=== PATIENT | female | born 1965 | race Caucasian/White ===

== ENCOUNTER 2020-03-06 21:28 | Inpatient (IN) | payer BC ==
[2020-03-06] VITALS (7 sets, daily range): BP systolic 90–124; BP diastolic 58–83; BMI 24.3
[~2020-03-06] VITALS: Ht 170.2 cm; Wt 70.3 kg
[2020-03-06] MEDS ORDERED: SEROQUEL XR150 MG PO (21:33)
--- NOTE | 2020-03-06 21:50 | NUR ---
EDP [facility] AT BEDSIDE FOR INTUBATION.
[2020-03-06 21:57] LABS: BASOPHILS 0.2 % (0-2); EOSINOPHILS 1.9 % (0-7); HEMATOCRIT 43.1 % (36.0-48.0); HEMOGLOBIN 14.3 g/dL (12-16); IMMATURE GRANULOCYTES 0.3 % (0-5); LYMPHOCYTES 34.8 % (15-50); MCH 32.6 pg (26.0-34.0); MCHC 33.2 g/dL (31.0-37.0); MCV 98.2 fL (80.0-100.0); MEAN PLATELET VOLUME 11.5 fL (7.4-10.4); MONOCYTES 6.4 % (2-11); NEUTROPHILS 56.4 % (40-80); PLATELET COUNT 155 10x3/uL (130-400); RBC 4.39 10x6/uL (4.00-5.40); RDW 13.7 % (11.5-14.5); WBC 6.2 10x3/uL (4.8-10.8)
[2020-03-06 22:22] LABS: CALC OSMOLALITY 279 mosm/kg (275-300); CALCIUM 8.2 mg/dL (8.5-10.1); CARBON DIOXIDE 24.8 mmol/L (21.0-32.0); CHLORIDE - SERUM 108 mmol/L (98-107); CREATININE - SERUM 0.8 mg/dL (0.6-1.3); GLUCOSE 104 mg/dL (74-106); POTASSIUM - SERUM 3.4 mmol/L (3.5-5.1); SODIUM 141 mmol/L (136-145); UREA NITROGEN 9 mg/dL (7-18); eGFR NON AFRICAN AMERICAN 80 mL/min (90-120)
[2020-03-06 22:25] LABS: ACETAMINOPHEN 1.4 ug/mL (10.0-30.0); ALBUMIN 3.4 g/dL (3.4-5.0); ALKALINE PHOSPHATASE 60 U/L (30-120); ALT (SGPT) 17 U/L (10-68); BILIRUBIN - TOTAL 0.25 mg/dL (0.2-1.3); MAGNESIUM - SERUM 1.9 mg/dL (1.8-2.4); PROTEIN - SERUM 6.2 g/dL (6.4-8.2)
[2020-03-06 22:33] LABS: BILIRUBIN NEGATIVE (NEGATIVE); GLUCOSE NEGATIVE (NEGATIVE); KETONE NEGATIVE (NEGATIVE); NITRITE NEGATIVE (NEGATIVE); UROBILINOGEN NORMAL (NORMAL)
[2020-03-06 22:39] LABS: UDS - AMPHET POSITIVE QUAL (NEGATIVE); UDS - BARB NEGATIVE QUAL (NEGATIVE); UDS - BENZO NEGATIVE QUAL (NEGATIVE); UDS - COCAINE NEGATIVE QUAL (NEGATIVE); UDS - OPIATE NEGATIVE QUAL (NEGATIVE); UDS - PCP NEGATIVE QUAL (NEGATIVE); UDS - THC POSITIVE QUAL (NEGATIVE)
--- NOTE | 2020-03-06 22:51 | NUR ---
report recieved from lj romero.
[2020-03-06 23:07] LABS: PROTIME 13.2 SECONDS (11.6-15.0)
--- NOTE | 2020-03-06 23:33 | NUR ---
patient arrived to unit
--- NOTE | 2020-03-06 23:47 | NUR ---
7.5 25 at the lip. 100 vent
[2020-03-07] VITALS (24 sets, daily range): BP systolic 109–139; BP diastolic 67–98; Ht 170.2 cm; Wt 70.3 kg
--- NOTE | 2020-03-07 06:42 | NUR ---
patient family calling. statedbecause of her overdose we can not be releasing information
--- NOTE | 2020-03-07 07:16 | NUR ---
AM ROUNDS COMPLETED. PT IS VENTED WITH VSS. SHIFT ASSESSMENT COMPLETED. PT STARTED TO AROUSE AND TRIED PULLING AT HER TUBE. INCREASED PROPOFOL DRIP TO 50MCG INFUSING VIA L.FA PIV. PT IS IN SOFT RESTRAINTS AND SKIN IS INTACT, NO BRUISING NOTED OR SKIN IRRITATION. LUNGS CTA THROUGHOUT ALL LOBES. HEART SOUNDS S1S2 NOTED RRR. BS ACTIVE X4. PT HAS KLINE DRAINING TO GRAVITY OFF L.SIDE OF BED CLEAR YELLOW URINE. STAT LOCK SECURED. NO IMMEDIATE NEEDS NOTED AT THIS TIME. WILL REVIEW CHART LABS AND ORDERS FOR TODAY AND CPOC.
[2020-03-07 07:26] LABS: ALKALINE PHOSPHATASE 59 U/L (30-120); ALT (SGPT) 16 U/L (10-68); BILIRUBIN - TOTAL 0.35 mg/dL (0.2-1.3); CALC OSMOLALITY 279 mosm/kg (275-300); CARBON DIOXIDE 23.5 mmol/L (21.0-32.0); CHLORIDE - SERUM 107 mmol/L (98-107); CREATININE - SERUM 0.7 mg/dL (0.6-1.3); GLUCOSE 85 mg/dL (74-106); MAGNESIUM - SERUM 1.8 mg/dL (1.8-2.4); POTASSIUM - SERUM 3.3 mmol/L (3.5-5.1); PROTEIN - SERUM 5.8 g/dL (6.4-8.2); SODIUM 142 mmol/L (136-145); UREA NITROGEN 8 mg/dL (7-18); eGFR NON AFRICAN AMERICAN > 90 mL/min (90-120)
--- NOTE | 2020-03-07 07:36 | NUR ---
PT AWAKE AGAIN AND ATTEMPTING TO PULL OUT LINES. INCREASED SEDATION DRIP AND SECURED BILAT SOFT WRIST RESTRAINTS. WILL CTM.
--- NOTE | 2020-03-07 08:00 | NUR ---
PT FLAILING LEGS AND ARMS TRYING TO PULL OUT HER VENT. INCREASED SEDATION DRIP AGAIN. NOW AT MAX OF 75MCG ON HER PROPOFOL. VSS AND BEING MONITERED. WILL CONTINUE TO TRY AND WEAN DOWN IF SHE CAN TOLERATE AND NOT HARM HER SAFETY.
[2020-03-07 08:08] LABS: BASOPHILS 0.2 % (0-2); EOSINOPHILS 1.1 % (0-7); HEMATOCRIT 41.3 % (36.0-48.0); HEMOGLOBIN 13.7 g/dL (12-16); IMMATURE GRANULOCYTES 0.2 % (0-5); LYMPHOCYTES 37.3 % (15-50); MCH 32.6 pg (26.0-34.0); MCHC 33.2 g/dL (31.0-37.0); MCV 98.3 fL (80.0-100.0); MEAN PLATELET VOLUME 11.2 fL (7.4-10.4); MONOCYTES 9.1 % (2-11); NEUTROPHILS 52.1 % (40-80); PLATELET COUNT 146 10x3/uL (130-400); RDW 13.9 % (11.5-14.5); WBC 6.3 10x3/uL (4.8-10.8)
--- NOTE | 2020-03-07 08:37 | NUR ---
POTASSIUM RIDER INITIATED PER ELECTROLYTE PROTOCOL. BAG 08/06. SEDATION STILL AT MAX PT REMAINS TRYING TO PULL AT LINES. VSS AND BEING MONITERED. NO IMMEDIATE NEEDS NOTED. WILL CTM.
--- NOTE | 2020-03-07 10:03 | NUR ---
PT RESTING QUIETLY IN BED WITH EYES CLOSED. NO CHANGES IN VENT SETTINGS. TURNED PT IN BED AND SHE AROUSED BUT REMAINS CALM. PROPOFOL DRIP INFUSING @75MCG/KG/MIN VIA L.FA PIV. R.FA PIV HAS SECOND BAG OF POTASSIUM RIDER INFUSING @100ML/HR PER ELECTROLYTE PROTOCOL REPLACEMENT. KLINE DRAINING TO GRAVITY OFF L.SIDE OF BED, NO KINKS NOTED. SOFT WRIST RESTRAINTS IN PLACE TO BILAT WRIST. NO CURRENT NEEDS. WILL CTM.
--- NOTE | 2020-03-07 10:11 | NUR ---
BAG 3/4 POTASSIUM INFUSING PER EP. WILL CTM.
--- NOTE | 2020-03-07 11:14 | NUR ---
ATTEMPTED TO WEAN PTS SEDATION DOWN AND RELEASE HER RESTRAINTS AND SHE IMMEDIATELY BEGAN TO THROW HER LEGS AND TRY TO PULL OUT HER VENT. VSS AND STILL BEING MONITERED WILL LEAVE PROPOFOL DRIP @70MCG/KG/MIN AT THIS TIME AND CONTINUE TO MONITER AND WEAN ABLE TO. LAST POTASSIUM RIDER BEING HUNG AND THEN WILL RECHECK LAB IN 2HRS PER ELECTROLYTE PROTOCOL. ORAL CARE PROVIDED TO PT. WILL HOLD ON BATH UNTIL A LITTLE LATER. NO CURRENT NEEDS NOTED AT THIS TIME. WILL CTM.
--- NOTE | 2020-03-07 12:28 | NUR ---
LAST POTASSIUM RIDER COMPLETED. TIMED LAB FOR REDRAW ORDERED. SL PTS R.FA PIV, SWAB CAP IN USE. PRN VERSED ORDER PLACED PT STILL HAS AGITATION DESPITE MAXED OUT OF PROPOFOL DRIP. WILL CTM.
--- NOTE | 2020-03-07 13:15 | NUR ---
BEDSIDE REPORT TAKEN AND PATIENT CARE ASSUMED AT THIS TIME.
--- NOTE | 2020-03-07 17:16 | MORECARE ---
CASE MANAGEMENT DISCHARGE SUMMARY PATIENT: FORTINO STEPHENS UNIT: [id number] ADM DATE: 03/06/20 AGE: 54 : 69 SEX: F ROOM/BED: D.2307 AUTHOR: REBECCA BOLAÑOS PHYSICIAN: REFERRING PHYSICIAN: VILLA ALBERT MD DATE OF SERVICE: 03/07/20 Discharge Plan Patient Name: FORTINO STEPHENS [facility] : 1965 Planned Disposition: Anticipated Discharge Date: Discharge Date: Expected LOS: Initial Reviewer: [email or web address] Initial Review Date: 03/07/2020 Generated: 03/07/20 6:15 pm DCPIA - Discharge Planning Initial Assessment Updated by [email or web address]: Cynthia Blackmon on 03/07/20 5:11 pm * Is the patient Alert and Oriented? No * PCP DR Shannon RAMIREZ [place], [place] * Pharmacy [facility] * Preadmission Environment Home with Family * ADLs Independent * Equipment None * Other Equipment N/A * List name and contact numbers for known caregivers / representatives who currently or will assist patient after discharge: KASANDRA MCINTOSH- - 10/14/2019 CELL PHONE [phone] * Verbal permission to speak to the caregivers and representatives has been obtained from the patient. No * Community resources currently utilized None * Please name any agencies selected above. N/A * Additional services required to return to the preadmission environment? Yes * Can the patient safely return to the preadmission environment? No * Has this patient been hospitalized within the prior 30 days at any hospital? No Patient Name: FORTINO STEPHENS Page 63827 at 1716 All edits/amendments must be made on the electronic document DICTATION DATE: 03/07/201714 RELATIONSHIP SPECIALIST: OLENA 03/07/201714 RPT#: [id number] DC DATE: STATUS: ADM IN [facility] [address] [place] [address] END OF REPORT
--- NOTE | 2020-03-07 17:31 | MORECARE ---
CASE MANAGEMENT DISCHARGE SUMMARY PATIENT: FORTINO STEPHENS UNIT: [id number] ADM DATE: 03/06/20 AGE: 54 : 69 SEX: F ROOM/BED: D.2307 AUTHOR: MAMI,DOC PHYSICIAN: REFERRING PHYSICIAN: VILLA ALBERT MD DATE OF SERVICE: 03/07/20 Discharge Plan Patient Name: FORTINO STEPHENS Facility: [facility]:[place] : 1965 Planned Disposition: Anticipated Discharge Date: Discharge Date: Expected LOS: Initial Reviewer: [email or web address] Initial Review Date: 03/07/2020 Generated: 03/07/20 6:31 pm Comments DCP- Discharge Planning Updated by [email or web address]: Cynthia Blackmon on 03/07/20 4:[address] NO INFORMATION WAS AVAILABLE ON THE FACE. TC TO [employer]. PATIENT WAS "PICKED UP AT #[facility] IN [place]. THE PHONE CALL FOR SERVICES CAME FROM [phone]. NO DOCUMENTATION REGARDING THE 'S NAME IN THE NOTES IN H/P. SPOKE WITH CM DIRECTOR, RAMBO AKHTAR. CALLED TO SPEAK WITH THE . CALL WAS RECEIVED BY KASANDRA MCINTOSH. HE STATES HE WAS THE PATIENT'S . THEY WERE 10/14/2019. SHE HAS TWO DAUGHTERS GARETH, AGE 23 YRS OLD AND LORENA AGE 3131 YEARS OLD. PCP- DR Shannon GILBERT IN [place]. PHARMACY- [facility]. THE STATED HE FOLLOWED THE AMBULANCE TO [facility]. HE KNEW SHE WAS PLACED ON A "BREATHING MACHINE" IN THE ER AND WENT TO ICU. THE PATIENT WAS INDEPENDENT IN HER ADL. 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 HE STATED SHE DOES HAVE INSURANCE WITH BC/BS. CM WILL FOLLOW TO ASSIST WITH DISCHARGE PLANNING. CM CONTACTED RADHA WITH MED DATA. HE WAS COGNIZANT OF HER INSURANCE STATUS. DCPIA - Discharge Planning Initial Assessment Updated by [email or web address]: Cynthia Blackmon on 03/07/20 5:11 pm * Is the patient Alert and Oriented? No * PCP DR Shannon RAMIREZ [place], [place] * Pharmacy [facility] * Preadmission Environment Home with Family * ADLs Independent * Equipment None * Other Equipment N/A * List name and contact numbers for known caregivers / representatives who currently or will assist patient after discharge: KASANDRA MCINTOSH- - 10/14/2019 CELL PHONE [phone] * Verbal permission to speak to the caregivers and representatives has been obtained from the patient. No * Community resources currently utilized None * Please name any agencies selected above. N/A * Additional services required to return to the preadmission environment? Yes * Can the patient safely return to the preadmission environment? No * Has this patient been hospitalized within the prior 30 days at any hospital? No Last DP export: 03/07/20 4:16 pm Patient Name: FORTINO STEPHENS Page 38286 at 1731 All edits/amendments must be made on the electronic document DICTATION DATE: 03/07/201730 RESERVATION AGENT: OLENA 03/07/201730 RPT#: [id number] [place] DATE: STATUS: ADM IN [facility] [address] [place] [address] END OF REPORT
--- NOTE | 2020-03-07 19:00 | NUR ---
REPORT RECEIVED. PT SEDATED ON VENT, SOFT WRIST RESTRAINTS IN PLACE. ASSESSMENT COMPLETED, SEE FLOWSHEET. PIV IN LEFT FOREARM, SEE IV FLOWSHEET. WILL CONTINUE TO MONITOR.
--- NOTE | 2020-03-07 21:00 | NUR ---
REPOSITIONED FOR COMFORT. WILL CONTINUE TO MONITOR.
--- NOTE | 2020-03-07 23:00 | NUR ---
REASSESSMENT COMPLETED, SEE FLOWSHEET.
[2020-03-08] VITALS (24 sets, daily range): BP systolic 109–137; BP diastolic 60–92
--- NOTE | 2020-03-08 01:00 | NUR ---
REPOSITIONED FOR COMFORT. WILL CONTINUE TO MONITOR.
--- NOTE | 2020-03-08 03:00 | NUR ---
REASSESSMENT COMPLETED, NO ACUTE DISTRESS NOTED.
[2020-03-08 03:52] LABS: BASOPHILS 0.1 % (0-2); EOSINOPHILS 0.7 % (0-7); HEMATOCRIT 44.1 % (36.0-48.0); HEMOGLOBIN 14.5 g/dL (12-16); IMMATURE GRANULOCYTES 0.3 % (0-5); LYMPHOCYTES 14.3 % (15-50); MCH 32.1 pg (26.0-34.0); MCHC 32.9 g/dL (31.0-37.0); MCV 97.6 fL (80.0-100.0); MEAN PLATELET VOLUME 11.2 fL (7.4-10.4); MONOCYTES 8.3 % (2-11); NEUTROPHILS 76.3 % (40-80); PLATELET COUNT 140 10x3/uL (130-400); RBC 4.52 10x6/uL (4.00-5.40); RDW 13.9 % (11.5-14.5)
[2020-03-08 04:04] LABS: WBC 9.4 10x3/uL (4.8-10.8)
[2020-03-08 04:11] LABS: ALKALINE PHOSPHATASE 69 U/L (30-120); ALT (SGPT) 17 U/L (10-68); CALC OSMOLALITY 277 mosm/kg (275-300); CALCIUM 8.3 mg/dL (8.5-10.1); CARBON DIOXIDE 27.6 mmol/L (21.0-32.0); CHLORIDE - SERUM 108 mmol/L (98-107); CREATININE - SERUM 0.7 mg/dL (0.6-1.3); GLUCOSE 105 mg/dL (74-106); MAGNESIUM - SERUM 1.8 mg/dL (1.8-2.4); POTASSIUM - SERUM 3.4 mmol/L (3.5-5.1); PROTEIN - SERUM 5.9 g/dL (6.4-8.2); SODIUM 141 mmol/L (136-145); eGFR NON AFRICAN AMERICAN > 90 mL/min (90-120)
[2020-03-08 04:25] LABS: UREA NITROGEN 5 mg/dL (7-18)
--- NOTE | 2020-03-08 05:00 | NUR ---
PT REPOSITIONED FOR COMFORT, NO ACUTE DISTRESS NOTED AT THIS TIME.
--- NOTE | 2020-03-08 07:38 | NUR ---
SHIFT REPORT RECEIVED. PT INTUBATED AND SEDATED. VENT A/C, R 14, TV500, FIO2 40%, PEEP 5. ETT 7.5 25 LIP LINE. HR 116 TACHYCARDIC. TEMP 99.9. 02 SAT 97%. BP 140/77. OGT TO LIS WITH BROWN DRAINAGE NOTED. PIV TO LEFT FOREARM WITH PROPOFOL AT 75MCG/KG/MIN AND NS+20K AT 75ML/HR. KLINE CATH IN PLACE WITH GREEN URINE NOTED. WRIST RESTRAINTS IN PLACE PER ORDER. RESTING COMFORTABLY AT THIS TIME. SAFETY MEASURES IN PLACE. WILL CONTINUE TO MONITO.
--- NOTE | 2020-03-08 11:09 | NUR ---
CALL RECEIVED FROM KASANDRA STEPHENS PT'S .
--- NOTE | 2020-03-08 13:08 | NUR ---
SEDATION DOWN TO 40 MCG FOR WEANING, PRE EXTUBATION
--- NOTE | 2020-03-08 14:40 | NUR ---
PS TRIAL 05/07
--- NOTE | 2020-03-08 15:00 | NUR ---
SEDATION DOWN TO 20MCG FOR PENDING EXTUBATION, , PATIENT AWAKE AND NOT FOLLOWING COMMANDS, NOT EASILY REDIRECTED, WILL CONTINUE WITH TRIAL, NO OTHER ACUTE CHANGE FROM PREVIOUS
--- NOTE | 2020-03-08 15:37 | MORECARE ---
CASE MANAGEMENT DISCHARGE SUMMARY PATIENT: FORTINO STEPHENS UNIT: [id number] ADM DATE: 03/06/20 AGE: 54 : 69 SEX: F ROOM/BED: D.2307 AUTHOR: MAMI,DOC PHYSICIAN: REFERRING PHYSICIAN: VILLA ALBERT MD DATE OF SERVICE: 03/08/20 Discharge Plan Patient Name: FORTINO STEPHENS Facility: [facility]:[place] : 1965 Planned Disposition: Anticipated Discharge Date: Discharge Date: Expected LOS: Initial Reviewer: [email or web address] Initial Review Date: 03/07/2020 Generated: 03/08/20 4:36 pm Comments DCP- Discharge Planning Updated by [email or web address]: Cynthia Blackmon on 03/08/20 2:[address] CM RECEIVED A TELEPHONE CALL FROM THE PRIMARY NURSE, SMITH. . THE PSYCHIATRIST STATES THE PATIENT WILL NEED INPATIENT PLACEMENT AND TO BEGIN THE SEARCH. THE PATIENT DOES REMAIN INTUBATED AND ON THE VENT. THE PLAN IS TO START WEANING TODAY. CM WILL FOLLOW TO SEARCH FOR PLACEMENT WHEN THE PATIENT IS EXTUBATED AND MEDICALLY STABLE. DCP- Discharge Planning Updated by [id number]: Cynthia Blackmon on 03/07/20 4:[address] NO INFORMATION WAS AVAILABLE ON THE FACE. TC TO [employer]. PATIENT WAS "PICKED UP AT #5 [facility] IN [place]. THE PHONE CALL FOR SERVICES CAME FROM [phone]. NO DOCUMENTATION REGARDING THE 'S NAME IN THE NOTES IN H/P. SPOKE WITH CM DIRECTOR, RAMBO AKHTAR. CALLED TO SPEAK WITH THE . CALL WAS RECEIVED BY KASANDRA MCINTOSH. HE STATES HE WAS THE PATIENT'S . THEY WERE 10/14/2019. SHE HAS TWO DAUGHTERS GARETH, AGE 23 YRS OLD AND LORENA AGE 3131 YEARS OLD. PCP- DR Shannon GILBERT IN [place]. PHARMACY- [facility]. THE STATED HE FOLLOWED THE AMBULANCE TO [facility]. HE KNEW SHE WAS PLACED ON A "BREATHING MACHINE" IN THE ER AND WENT TO ICU. THE PATIENT WAS INDEPENDENT IN HER ADL. 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 HE STATED SHE DOES HAVE INSURANCE WITH BC/BS. CM WILL FOLLOW TO ASSIST WITH DISCHARGE PLANNING. CM CONTACTED RADHA WITH MED DATA. HE WAS COGNIZANT OF HER INSURANCE STATUS. DCPIA - Discharge Planning Initial Assessment Updated by [id number]: Cynthia Blackmon on 03/07/20 5:11 pm * Is the patient Alert and Oriented? No * PCP DR Shannon [place], [place] * Pharmacy [facility] * Preadmission Environment Home with Family * ADLs Independent * Equipment None * Other Equipment N/A * List name and contact numbers for known caregivers / representatives who currently or will assist patient after discharge: KASANDRA MCINTOSH- - 10/14/2019 CELL PHONE [phone] * Verbal permission to speak to the caregivers and representatives has been obtained from the patient. No * Community resources currently utilized None * Please name any agencies selected above. N/A * Additional services required to return to the preadmission environment? Yes * Can the patient safely return to the preadmission environment? No * Has this patient been hospitalized within the prior 30 days at any hospital? No Last DP export: 03/07/20 4:31 pm Patient Name: FORTINO STEPHENS Page 75620 at 1537 All edits/amendments must be made on the electronic document DICTATION DATE: 03/08/201535 BARNWORKER GROOM: OLENA 03/08/201535 RPT#: [id number] DC DATE: STATUS: ADM IN [facility] [address] [place] [address] END OF REPORT
--- NOTE | 2020-03-08 16:05 | NUR ---
SEDATION OFF, EXTUBATED TO 2L NC, ORAL CARE AND SUCTION COMPLETED, VSS, NO NEEDS AT THIS TIME, I AND O'S COMPLETED
--- NOTE | 2020-03-08 18:00 | NUR ---
LAB HERE FOR REPEAT POTASSIUM LEVEL
--- NOTE | 2020-03-08 19:00 | NUR ---
REPORT RECEIVED. PT RESTING IN BED, DISORIENTED X3. AROUSES TO DEEP STIMULI. 2L O2 VIA NC, ASSESSMENT COMPLETED, SEE FLOWSHEET. PIV IN LEFT AND RIGHT FOREARM INFUSING, SEE IV FLOWSHEET.
--- NOTE | 2020-03-08 21:30 | NUR ---
ATTEMPTED TO SUCTION AND REORIENT. PT SPEECH GARBLED.
[2020-03-09] VITALS (12 sets, daily range): BP systolic 112–153; BP diastolic 62–88
--- NOTE | 2020-03-09 02:46 | NUR ---
ORAL CARE PROVIDED, TONGUE SWOLLEN AND DRY.
[2020-03-09 04:03] LABS: BASOPHILS 0.1 % (0-2); EOSINOPHILS 0.2 % (0-7); HEMATOCRIT 42.3 % (36.0-48.0); HEMOGLOBIN 13.7 g/dL (12-16); IMMATURE GRANULOCYTES 0.5 % (0-5); LYMPHOCYTES 11.8 % (15-50); MCH 32.1 pg (26.0-34.0); MCHC 32.4 g/dL (31.0-37.0); MCV 99.1 fL (80.0-100.0); MEAN PLATELET VOLUME 11.7 fL (7.4-10.4); MONOCYTES 8.5 % (2-11); NEUTROPHILS 78.9 % (40-80); PLATELET COUNT 134 10x3/uL (130-400); RBC 4.27 10x6/uL (4.00-5.40); RDW 14.4 % (11.5-14.5)
[2020-03-09 04:13] LABS: WBC 12.1 10x3/uL (4.8-10.8)
--- NOTE | 2020-03-09 04:42 | NUR ---
UNABLE TO OBTAIN SUICIDE RISK ASSESSMENT R/T PATIENT CONFUSED THIS SHIFT
[2020-03-09 05:24] LABS: ALBUMIN 2.5 g/dL (3.4-5.0); ALKALINE PHOSPHATASE 70 U/L (30-120); BILIRUBIN - TOTAL 0.98 mg/dL (0.2-1.3); CALC OSMOLALITY 279 mosm/kg (275-300); CALCIUM 7.9 mg/dL (8.5-10.1); CHLORIDE - SERUM 108 mmol/L (98-107); CREATININE - SERUM 0.7 mg/dL (0.6-1.3); GLUCOSE 103 mg/dL (74-106); MAGNESIUM - SERUM 1.7 mg/dL (1.8-2.4); PHOSPHOROUS 2.4 mg/dL (2.5-4.9); POTASSIUM - SERUM 3.6 mmol/L (3.5-5.1); SODIUM 142 mmol/L (136-145); UREA NITROGEN 5 mg/dL (7-18); eGFR NON AFRICAN AMERICAN > 90 mL/min (90-120)
[2020-03-09 05:25] LABS: ALT (SGPT) 11 U/L (10-68); CARBON DIOXIDE 19.8 mmol/L (21.0-32.0)
--- NOTE | 2020-03-09 09:24 | NUR ---
attempting to pull iv out, stopped by sitter, easily redirected, resting with no signs of distress at this time,
--- NOTE | 2020-03-09 10:53 | NUR ---
Nutrition follow-up: Pt extubated 03/08; remains NPO 2/2 confusion Labs reviewed Wt: 155# Will need nutrition support started within 24 hours if po diet unable to begin RDN following.
--- NOTE | 2020-03-09 12:48 | NUR ---
TRANSFERRED VIA WHEELCHAIR TO 2228 BY SCREENER, CELL PHONE AND MANAGER ROOM SENT WITH SCREENER
--- NOTE | 2020-03-09 12:49 | NUR ---
REC'D TO ROOM 2229 VIA WC AWAKE AND ALERT. RESP EVEN AND UNLABORED WITH NO DISTRESS NOTED. NO C/O PAIN OR DISCOMFORT NOTED OR VOICED. TRANSFER SELF OVER TO BED. C/L IN REACH AT BEDSIDE.
--- NOTE | 2020-03-09 13:19 | CN ---
PATIENT NAME:FORTINO STEPHENS MEDICAL RECORD: [id number] : 69 LOCATION:D.MS James2229 ADMIT DATE: 03/06/20 ACCOUNT: [id number] CONSULTING PHYSICIAN: PIYUSH BELLA MD REFERRING PHYSICIAN: VILLA ALBERT MD DATE OF CONSULTATION: 03/08/2020 PSYCHIATRIC CONSULTATION IDENTIFYING DATA: The patient is 54 years old and she is admitted to the hospital voluntarily. CHIEF COMPLAINT: Overdose. HISTORY OF PRESENT ILLNESS: The patient apparently took 40 or more tablets of Seroquel along with an unknown amount of Tequila. She did this deliberately and with the intention of killing herself. Her brought her to the Emergency Department where she was found to be in respiratory distress and required intubation. That was 2 days ago and she is still intubated. Her urine was positive for both amphetamines and marijuana along with the blood alcohol level that was 165. The patient is intubated and not interviewable. ASSESSMENT: 1. Status post overdose. 2. Polysubstance abuse. 3. Presumptive major depressive episode. PLAN: The patient has been on a ventilator for 2 days. This was a very serious overdose. Once extubated, I or Soledad the nurse practitioner would be happy to see her again. Having said that, I must also indicate that there is not a set of circumstances that I can for see that would cause me to recommend anything short of acute inpatient hospitalization. Based on that information, I think it is appropriate for case management to begin looking for placement and she will need to be with a sitter once she is extubated. TRANSINT:[id number] Voice Confirmation ID: [id number] DOCUMENT ID: [id number] PIYUSH BELLA MD at 1319 CC: [id number] DICTATION DATE: 03/08/20 1543 BUDGET MANAGER: 03/08/20 1556 ADM IN [facility] [id number] [place] [address]
--- NOTE | 2020-03-09 16:14 | NUR ---
WAS MEDICATED WITH APAP PER ORDERS AT THIS TIME. C/L IN REACH AT BEDSIDE.
--- NOTE | 2020-03-09 18:45 | NUR ---
I have reviewed this patient and I concur with the Shift Assessment completed by the Licensed Practical Nurse today this shift.
[2020-03-10] VITALS: BP 133/73
[2020-03-10 04:00] VITALS: BP 166/81
--- NOTE | 2020-03-10 04:38 | NUR ---
I have reviewed this patient and I concur with the Shift Assessment completed by the Licensed Practical Nurse today this shift.
[2020-03-10 06:14] LABS: BASOPHILS 0.1 % (0-2); EOSINOPHILS 1.2 % (0-7); HEMATOCRIT 41.5 % (36.0-48.0); HEMOGLOBIN 13.6 g/dL (12-16); IMMATURE GRANULOCYTES 0.4 % (0-5); LYMPHOCYTES 8.6 % (15-50); MCH 32.3 pg (26.0-34.0); MCHC 32.8 g/dL (31.0-37.0); MCV 98.6 fL (80.0-100.0); MEAN PLATELET VOLUME 11.6 fL (7.4-10.4); MONOCYTES 8.3 % (2-11); NEUTROPHILS 81.4 % (40-80); PLATELET COUNT 146 10x3/uL (130-400); RBC 4.21 10x6/uL (4.00-5.40); WBC 11.9 10x3/uL (4.8-10.8)
[2020-03-10 06:33] LABS: ALBUMIN 2.5 g/dL (3.4-5.0); ALKALINE PHOSPHATASE 75 U/L (30-120); ALT (SGPT) 11 U/L (10-68); BILIRUBIN - TOTAL 0.86 mg/dL (0.2-1.3); CALC OSMOLALITY 274 mosm/kg (275-300); CALCIUM 8.3 mg/dL (8.5-10.1); CARBON DIOXIDE 22.3 mmol/L (21.0-32.0); CHLORIDE - SERUM 106 mmol/L (98-107); GLUCOSE 88 mg/dL (74-106); PROTEIN - SERUM 6.4 g/dL (6.4-8.2); SODIUM 140 mmol/L (136-145); UREA NITROGEN 5 mg/dL (7-18)
[2020-03-10 06:38] LABS: CREATININE - SERUM 0.5 mg/dL (0.6-1.3); MAGNESIUM - SERUM 2.2 mg/dL (1.8-2.4); eGFR NON AFRICAN AMERICAN > 90 mL/min (90-120)
--- NOTE | 2020-03-10 07:53 | NUR ---
ALERT AND ORIENTED. LUNGS CLEAR BILATERALLY. HEART SOUNDS S1 AND S2 HEARD IN ALL [place]. BOWEL SOUNDS ACTIVE X 4. IV TO LFA PATENT WITHOUT REDNESS. O2 IN PLACE AT 4L NC. DENIES NEEDS. BED LOW. CALL BENITEZ AND PERSONAL ITEMS IN REACH. WILL CONTINUE TO MONITOR.
--- NOTE | 2020-03-10 08:58 | NUR ---
SPOKE WITH MATTI GRANDA ABOUT REMOVING PATIENT'S KLINE. STATES OK TO BLADDER TRAIN THEN DC KLINE.
--- NOTE | 2020-03-10 09:00 | NUR ---
KLINE CLAMPED FOR BLADDER TRAININGS.
--- NOTE | 2020-03-10 09:25 | NUR ---
PATIENT STATES HAS PERSONAL BELONGINGS "SOMEWHERE IN THE HOSPITAL" INCLUDING CLOTHING AND CELL PHONE. CALLED ICU WHO STATES DO NOT HAVE ANY BELONGINGS. NO BELONGING LIST ON CHART. NO NOTE OF ANY BELONGINGS ON ADMISSION ASSESSMENT. NO MENTION OF BELONGINGS IN NURSING NOTED. CALLED ER WHO STATES WILL CHECK TO SEE IF ANY PERSONAL BELONGINGS AND CALL BACK.
--- NOTE | 2020-03-10 09:41 | NUR ---
KLINE REMOVED WITH TIP INTACT. HAT PLACED IN TOILET TO MONITOR URINE OUTPUT. STAT LOCK REMOVED FROM RIGHT UPPER THIGH.
--- NOTE | 2020-03-10 09:43 | NUR ---
100ML VOID NOTED.
[2020-03-10 09:49] VITALS: BP 133/90
--- NOTE | 2020-03-10 10:22 | NUR ---
SPOKE WITH PATIENT'S WHO STATES HE TOOK HOME PATIENT'S CLOTHES AND PURSE BUT LEFT PATIENT'S CELL PHONE WITH PATIENT IN ER. SPOKE WITH ER WHO STATES DO NOT HAVE CELL PHONE.
--- NOTE | 2020-03-10 10:24 | NUR ---
CELL PHONE FOUND IN DRAWER OUTSIDE ROOM WITH SITTER.
--- NOTE | 2020-03-10 13:48 | NUR ---
TOOK HOME PHONE AND PHONE SCHOOL PHOTOGRAPHS DETAILER.
[2020-03-10 13:58] VITALS: BP 149/93
--- NOTE | 2020-03-10 15:02 | MORECARE ---
CASE MANAGEMENT DISCHARGE SUMMARY PATIENT: FORTINO STEPHENS UNIT: [id number] ADM DATE: 03/06/20 AGE: 54 : 69 SEX: F ROOM/BED: D.2229 AUTHOR: MAMI,DOC PHYSICIAN: REFERRING PHYSICIAN: VILLA ALBERT MD DATE OF SERVICE: 03/10/20 Discharge Plan Patient Name: FORTINO STEPHENS Facility: [facility]:[place] : 1965 Planned Disposition: Anticipated Discharge Date: Discharge Date: Expected LOS: Initial Reviewer: [email or web address] Initial Review Date: 03/07/2020 Generated: 03/10/20 4:01 pm Comments DCP- Discharge Planning Updated by [email or web address]: Cynthia Blackmon on 03/08/20 2:[address] CM RECEIVED A TELEPHONE CALL FROM THE PRIMARY NURSE, SMITH. . THE PSYCHIATRIST STATES THE PATIENT WILL NEED INPATIENT PLACEMENT AND TO BEGIN THE SEARCH. THE PATIENT DOES REMAIN INTUBATED AND ON THE VENT. THE PLAN IS TO START WEANING TODAY. CM WILL FOLLOW TO SEARCH FOR PLACEMENT WHEN THE PATIENT IS EXTUBATED AND MEDICALLY STABLE. DCP- Discharge Planning Updated by [email or web address]: Cynthia Blackmon on 03/07/20 4:[address] NO INFORMATION WAS AVAILABLE ON THE FACE. TC TO [employer]. PATIENT WAS "PICKED UP AT #[facility] IN [place]. THE PHONE CALL FOR SERVICES CAME FROM [phone]. NO DOCUMENTATION REGARDING THE 'S NAME IN THE NOTES IN H/P. SPOKE WITH CM DIRECTOR, RAMBO AKHTAR. CALLED TO SPEAK WITH THE . CALL WAS RECEIVED BY KASANDRA MCINTOSH. HE STATES HE WAS THE PATIENT'S . THEY WERE 10/14/2019. SHE HAS TWO DAUGHTERS GARETH, AGE 23 YRS OLD AND LORENA AGE 3131 YEARS OLD. PCP- DR Shannon GILBERT IN [place]. PHARMACY- [facility]. THE STATED HE FOLLOWED THE AMBULANCE TO [facility]. HE KNEW SHE WAS PLACED ON A "BREATHING MACHINE" IN THE ER AND WENT TO ICU. THE PATIENT WAS INDEPENDENT IN HER ADL. 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 HE STATED SHE DOES HAVE INSURANCE WITH BC/BS. CM WILL FOLLOW TO ASSIST WITH DISCHARGE PLANNING. CM CONTACTED RADHA WITH MED DATA. HE WAS COGNIZANT OF HER INSURANCE STATUS. DCPIA - Discharge Planning Initial Assessment Updated by [email or web address]: Cynthia Blackmon on 03/07/20 5:11 pm * Is the patient Alert and Oriented? No * PCP DR Shannon [place], [place] * Pharmacy [facility] * Preadmission Environment Home with Family * ADLs Independent * Equipment None * Other Equipment N/A * List name and contact numbers for known caregivers / representatives who currently or will assist patient after discharge: KASANDRA MCINTOSH- - 10/14/2019 CELL PHONE [phone] * Verbal permission to speak to the caregivers and representatives has been obtained from the patient. No * Community resources currently utilized None * Please name any agencies selected above. N/A * Additional services required to return to the preadmission environment? Yes * Can the patient safely return to the preadmission environment? No * Has this patient been hospitalized within the prior 30 days at any hospital? No External Providers External Provider: Marysol Next Contact Date: Service Request Date: Service Type: Resolution: Reviewer: Comments: Last DP export: 03/08/20 2:37 pm Patient Name: FORTINO STEPHENS Page 49073 at 1502 All edits/amendments must be made on the electronic document DICTATION DATE: 03/10/20 1501 SOC ANALYST: OLENA 03/10/20 1501 RPT#: [id number] DC DATE: STATUS: ADM IN [facility] [address] [place] [address] END OF REPORT
--- NOTE | 2020-03-10 15:08 | MORECARE ---
CASE MANAGEMENT DISCHARGE SUMMARY PATIENT: FORTINO STEPHENS UNIT: [id number] ADM DATE: 03/06/20 AGE: 54 : 69 SEX: F ROOM/BED: D.2229 AUTHOR: MAMI,DOC PHYSICIAN: REFERRING PHYSICIAN: VILLA ALBERT MD DATE OF SERVICE: 03/10/20 Discharge Plan Patient Name: FORTINO STEPHENS Facility: [facility]:[place] : 1965 Planned Disposition: Anticipated Discharge Date: Discharge Date: Expected LOS: Initial Reviewer: [id number] Initial Review Date: 03/07/2020 Generated: 03/10/20 4:08 pm Comments DCP- Discharge Planning Updated by [email or web address]: Cynthia Blackmon on 03/08/20 2:[address] CM RECEIVED A TELEPHONE CALL FROM THE PRIMARY NURSE, SMITH. . THE PSYCHIATRIST STATES THE PATIENT WILL NEED INPATIENT PLACEMENT AND TO BEGIN THE SEARCH. THE PATIENT DOES REMAIN INTUBATED AND ON THE VENT. THE PLAN IS TO START WEANING TODAY. CM WILL FOLLOW TO SEARCH FOR PLACEMENT WHEN THE PATIENT IS EXTUBATED AND MEDICALLY STABLE. DCP- Discharge Planning Updated by [email or web address]: Cynthia Blackmon on 03/07/20 4:[address] NO INFORMATION WAS AVAILABLE ON THE FACE. TC TO [employer]. PATIENT WAS "PICKED UP AT #[facility] IN [place]. THE PHONE CALL FOR SERVICES CAME FROM [phone]. NO DOCUMENTATION REGARDING THE 'S NAME IN THE NOTES IN H/P. SPOKE WITH CM DIRECTOR, RAMBO AKHTAR. CALLED TO SPEAK WITH THE . CALL WAS RECEIVED BY KASANDRA MCINTOSH. HE STATES HE WAS THE PATIENT'S . THEY WERE 10/14/2019. SHE HAS TWO DAUGHTERS GARETH, AGE 23 YRS OLD AND LORENA AGE 3131 YEARS OLD. PCP- DR Shannon GILBERT IN [place]. PHARMACY- [facility]. THE STATED HE FOLLOWED THE AMBULANCE TO [facility]. HE KNEW SHE WAS PLACED ON A "BREATHING MACHINE" IN THE ER AND WENT TO ICU. THE PATIENT WAS INDEPENDENT IN HER ADL. 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 HE STATED SHE DOES HAVE INSURANCE WITH BC/BS. CM WILL FOLLOW TO ASSIST WITH DISCHARGE PLANNING. CM CONTACTED RADHA WITH MED DATA. HE WAS COGNIZANT OF HER INSURANCE STATUS. DCPIA - Discharge Planning Initial Assessment Updated by [id number]: Cynthia Blackmon on 03/07/20 5:11 pm * Is the patient Alert and Oriented? No * [facility] [place] * Pharmacy [facility] * Preadmission Environment Home with Family * ADLs Independent * Equipment None * Other Equipment N/A * List name and contact numbers for known caregivers / representatives who currently or will assist patient after discharge: KASANDRA MCINTOSH- - 10/14/2019 CELL PHONE [phone] * Verbal permission to speak to the caregivers and representatives has been obtained from the patient. No * Community resources currently utilized None * Please name any agencies selected above. N/A * Additional services required to return to the preadmission environment? Yes * Can the patient safely return to the preadmission environment? No * Has this patient been hospitalized within the prior 30 days at any hospital? No External Providers External Provider: [facility] (Inpt Adult Psych) Next Contact Date: Service Request Date: Service Type: Resolution: Reviewer: Comments: Last DP export: 03/10/20 2:02 pm Patient Name: FORTINO STEPHENS Page 03104 at 1508 All edits/amendments must be made on the electronic document DICTATION DATE: 03/10/20 1508 PUMP TENDER: OLENA 03/10/20 1508 RPT#: [id number] DC DATE: STATUS: ADM IN [facility] [address] [place] [address] END OF REPORT
--- NOTE | 2020-03-10 15:15 | MORECARE ---
CASE MANAGEMENT DISCHARGE SUMMARY PATIENT: FORTINO STEPHENS UNIT: [id number] ADM DATE: 03/06/20 AGE: 54 : 69 SEX: F ROOM/BED: D.2229 AUTHOR: MAMI,DOC PHYSICIAN: REFERRING PHYSICIAN: VILLA ALBERT MD DATE OF SERVICE: 03/10/20 Discharge Plan Patient Name: FORTINO STEPHENS Facility: [facility]:[place] : 1965 Planned Disposition: Anticipated Discharge Date: Discharge Date: Expected LOS: Initial Reviewer: [id number] Initial Review Date: 03/07/2020 Generated: 03/10/20 4:15 pm Comments DCP- Discharge Planning Updated by [email or web address]: Cynthia Blackmon on 03/08/20 2:[address] CM RECEIVED A TELEPHONE CALL FROM THE PRIMARY NURSE, SMITH. . THE PSYCHIATRIST STATES THE PATIENT WILL NEED INPATIENT PLACEMENT AND TO BEGIN THE SEARCH. THE PATIENT DOES REMAIN INTUBATED AND ON THE VENT. THE PLAN IS TO START WEANING TODAY. CM WILL FOLLOW TO SEARCH FOR PLACEMENT WHEN THE PATIENT IS EXTUBATED AND MEDICALLY STABLE. DCP- Discharge Planning Updated by [id number]: Cynthia Blackmon on 03/07/20 4:[address] NO INFORMATION WAS AVAILABLE ON THE FACE. TC TO [employer]. PATIENT WAS "PICKED UP AT #5 [facility] IN [place]. THE PHONE CALL FOR SERVICES CAME FROM [phone]. NO DOCUMENTATION REGARDING THE 'S NAME IN THE NOTES IN H/P. SPOKE WITH CM DIRECTOR, RAMBO AKHTAR. CALLED TO SPEAK WITH THE . CALL WAS RECEIVED BY KASANDRA MCINTOSH. HE STATES HE WAS THE PATIENT'S . THEY WERE 10/14/2019. SHE HAS TWO DAUGHTERS GARETH, AGE 23 YRS OLD AND LORENA AGE 3131 YEARS OLD. PCP- DR Shannon GILBERT IN [place]. PHARMACY- [facility]. THE STATED HE FOLLOWED THE AMBULANCE TO [facility]. HE KNEW SHE WAS PLACED ON A "BREATHING MACHINE" IN THE ER AND WENT TO ICU. THE PATIENT WAS INDEPENDENT IN HER ADL. 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 HE STATED SHE DOES HAVE INSURANCE WITH BC/BS. CM WILL FOLLOW TO ASSIST WITH DISCHARGE PLANNING. CM CONTACTED RADHA WITH MED DATA. HE WAS COGNIZANT OF HER INSURANCE STATUS. DCPIA - Discharge Planning Initial Assessment Updated by [id number]: Cynthia Blackmon on 03/07/20 5:11 pm * Is the patient Alert and Oriented? No * PCP DR Shannon [place], [place] * Pharmacy [facility] * Preadmission Environment Home with Family * ADLs Independent * Equipment None * Other Equipment N/A * List name and contact numbers for known caregivers / representatives who currently or will assist patient after discharge: KASANDRA MCINTOSH- - 10/14/2019 CELL PHONE [phone] * Verbal permission to speak to the caregivers and representatives has been obtained from the patient. No * Community resources currently utilized None * Please name any agencies selected above. N/A * Additional services required to return to the preadmission environment? Yes * Can the patient safely return to the preadmission environment? No * Has this patient been hospitalized within the prior 30 days at any hospital? No External Providers External Provider: Mony Next Contact Date: Service Request Date: Service Type: Resolution: Reviewer: Comments: External Provider: LEIF Next Contact Date: Service Request Date: Service Type: Resolution: Reviewer: Comments: [facility] Next Contact Date: Service Request Date: Service Type: Resolution: Reviewer: Comments: Last DP export: 03/10/20 2:08 pm Patient Name: FORTINO STEPHENS Page 67393 at 1515 All edits/amendments must be made on the electronic document DICTATION DATE: 03/10/20 1515 HADOOP ANALYST: OLENA 03/10/20 1515 RPT#: [id number] DC DATE: STATUS: ADM IN [facility] [address] [place] [address] END OF REPORT
--- NOTE | 2020-03-10 15:22 | MORECARE ---
CASE MANAGEMENT DISCHARGE SUMMARY PATIENT: FORTINO STEPHENS UNIT: [id number] ADM DATE: 03/06/20 AGE: 54 : 69 SEX: F ROOM/BED: D.2229 AUTHOR: MAMI,DOC PHYSICIAN: REFERRING PHYSICIAN: VILLA ALBRET MD DATE OF SERVICE: 03/10/20 Discharge Plan Patient Name: FORTINO STEPHENS Facility: [facility]:[place] : 1965 Planned Disposition: Anticipated Discharge Date: Discharge Date: Expected LOS: Initial Reviewer: [id number] Initial Review Date: 03/07/2020 Generated: 03/10/20 4:21 pm Comments DCP- Discharge Planning Updated by [id number]: Cynthia Blackmon on 03/08/20 2:[address] CM RECEIVED A TELEPHONE CALL FROM THE PRIMARY NURSE, SMITH. . THE PSYCHIATRIST STATES THE PATIENT WILL NEED INPATIENT PLACEMENT AND TO BEGIN THE SEARCH. THE PATIENT DOES REMAIN INTUBATED AND ON THE VENT. THE PLAN IS TO START WEANING TODAY. CM WILL FOLLOW TO SEARCH FOR PLACEMENT WHEN THE PATIENT IS EXTUBATED AND MEDICALLY STABLE. DCP- Discharge Planning Updated by [id number]: Cynthia Blackmon on 03/07/20 4:[address] NO INFORMATION WAS AVAILABLE ON THE FACE. TC TO [employer]. PATIENT WAS "PICKED UP AT #5 [facility] IN [place]. THE PHONE CALL FOR SERVICES CAME FROM [phone]. NO DOCUMENTATION REGARDING THE 'S NAME IN THE NOTES IN H/P. SPOKE WITH CM DIRECTOR, RAMBO AKHTAR. CALLED TO SPEAK WITH THE . CALL WAS RECEIVED BY KASANDRA MCINTOSH. HE STATES HE WAS THE PATIENT'S . THEY WERE 10/14/2019. SHE HAS TWO DAUGHTERS GARETH, AGE 23 YRS OLD AND LORENA AGE 3131 YEARS OLD. PCP- DR Shannon GILBERT IN [place]. PHARMACY- [facility]. THE STATED HE FOLLOWED THE AMBULANCE TO [facility]. HE KNEW SHE WAS PLACED ON A "BREATHING MACHINE" IN THE ER AND WENT TO ICU. THE PATIENT WAS INDEPENDENT IN HER ADL. 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 HE STATED SHE DOES HAVE INSURANCE WITH BC/BS. CM WILL FOLLOW TO ASSIST WITH DISCHARGE PLANNING. CM CONTACTED RADHA WITH MED DATA. HE WAS COGNIZANT OF HER INSURANCE STATUS. DCPIA - Discharge Planning Initial Assessment Updated by [id number]: Cynthia Blackmon on 03/07/20 5:11 pm * Is the patient Alert and Oriented? No * PCP DR Shannon [place], [place] * Pharmacy [facility] * Preadmission Environment Home with Family * ADLs Independent * Equipment None * Other Equipment N/A * List name and contact numbers for known caregivers / representatives who currently or will assist patient after discharge: KASANDRA MCINTOSH- - 10/14/2019 CELL PHONE [phone] * Verbal permission to speak to the caregivers and representatives has been obtained from the patient. No * Community resources currently utilized None * Please name any agencies selected above. N/A * Additional services required to return to the preadmission environment? Yes * Can the patient safely return to the preadmission environment? No * Has this patient been hospitalized within the prior 30 days at any hospital? No External Providers External Provider: OTHER-OTHER Next Contact Date: Service Request Date: Service Type: Resolution: Reviewer: Comments: Last DP export: 03/10/20 2:15 pm Patient Name: FORTINO STEPHENS Page [id number] at 1522 All edits/amendments must be made on the electronic document DICTATION DATE: 03/10/20 152 BRIDGE CARPENTER: OLENA 03/10/20 152 RPT#: [id number] DC DATE: STATUS: ADM IN [facility] [address] [place] [address] END OF REPORT
--- NOTE | 2020-03-10 15:28 | MORECARE ---
CASE MANAGEMENT DISCHARGE SUMMARY PATIENT: FORTINO STEPHENS UNIT: [id number] ADM DATE: 03/06/20 AGE: 54 : 69 SEX: F ROOM/BED: D.2229 AUTHOR: MAMI,DOC PHYSICIAN: REFERRING PHYSICIAN: VILLA ALBERT MD DATE OF SERVICE: 03/10/20 Discharge Plan Patient Name: FORTINO STEPHENS Facility: [facility]:[place] : 1965 Planned Disposition: Anticipated Discharge Date: Discharge Date: Expected LOS: Initial Reviewer: [id number] Initial Review Date: 03/07/2020 Generated: 03/10/20 4:27 pm Comments DCP- Discharge Planning Updated by [id number]: Cynthia Blackmon on 03/08/20 2:[address] CM RECEIVED A TELEPHONE CALL FROM THE PRIMARY NURSE, SMITH. . THE PSYCHIATRIST STATES THE PATIENT WILL NEED INPATIENT PLACEMENT AND TO BEGIN THE SEARCH. THE PATIENT DOES REMAIN INTUBATED AND ON THE VENT. THE PLAN IS TO START WEANING TODAY. CM WILL FOLLOW TO SEARCH FOR PLACEMENT WHEN THE PATIENT IS EXTUBATED AND MEDICALLY STABLE. DCP- Discharge Planning Updated by [email or web address]: Cynthia Blackmon on 03/07/20 4:[address] NO INFORMATION WAS AVAILABLE ON THE FACE. TC TO [employer]. PATIENT WAS "PICKED UP AT #5 [facility] IN [place]. THE PHONE CALL FOR SERVICES CAME FROM [phone]. NO DOCUMENTATION REGARDING THE 'S NAME IN THE NOTES IN H/P. SPOKE WITH CM DIRECTOR, RAMBO AKHTAR. CALLED TO SPEAK WITH THE . CALL WAS RECEIVED BY KASANDRA MCINTOSH. HE STATES HE WAS THE PATIENT'S . THEY WERE 10/14/2019. SHE HAS TWO DAUGHTERS GARETH, AGE 23 YRS OLD AND LORENA AGE 3131 YEARS OLD. PCP- DR Shannon GILBERT IN [place]. PHARMACY- [facility]. THE STATED HE FOLLOWED THE AMBULANCE TO [facility]. HE KNEW SHE WAS PLACED ON A "BREATHING MACHINE" IN THE ER AND WENT TO ICU. THE PATIENT WAS INDEPENDENT IN HER ADL. 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 HE STATED SHE DOES HAVE INSURANCE WITH BC/BS. CM WILL FOLLOW TO ASSIST WITH DISCHARGE PLANNING. CM CONTACTED RADHA WITH MED DATA. HE WAS COGNIZANT OF HER INSURANCE STATUS. DCPIA - Discharge Planning Initial Assessment Updated by [id number]: Cynthia Blackmon on 03/07/20 5:11 pm * Is the patient Alert and Oriented? No * PCP DR Shannon [place], [place] * Pharmacy [facility] * Preadmission Environment Home with Family * ADLs Independent * Equipment None * Other Equipment N/A * List name and contact numbers for known caregivers / representatives who currently or will assist patient after discharge: KASANDRA MCNITOSH- - 10/14/2019 CELL PHONE [phone] * Verbal permission to speak to the caregivers and representatives has been obtained from the patient. No * Community resources currently utilized None * Please name any agencies selected above. N/A * Additional services required to return to the preadmission environment? Yes * Can the patient safely return to the preadmission environment? No * Has this patient been hospitalized within the prior 30 days at any hospital? No External Providers External Provider: LEIF Next Contact Date: Service Request Date: Service Type: Resolution: Reviewer: Comments: Last DP export: 03/10/20 2:22 pm Patient Name: FORTINO STEPHENS Page 99152 at 1528 All edits/amendments must be made on the electronic document DICTATION DATE: 03/10/20 1528 CANDY CUTTER MACHINE: OLENA 03/10/20 1528 RPT#: [id number] DC DATE: STATUS: ADM IN [facility] [address] [place] [address] END OF REPORT
--- NOTE | 2020-03-10 15:35 | MORECARE ---
CASE MANAGEMENT DISCHARGE SUMMARY PATIENT: FORTINO STEPHENS UNIT: [id number] ADM DATE: 03/06/20 AGE: 54 : 69 SEX: F ROOM/BED: D.2229 AUTHOR: MAMI,DOC PHYSICIAN: REFERRING PHYSICIAN: VILLA ALBERT MD DATE OF SERVICE: 03/10/20 Discharge Plan Patient Name: FORTINO STEPHENS Facility: [facility]:[place] : 1965 Planned Disposition: Anticipated Discharge Date: Discharge Date: Expected LOS: Initial Reviewer: [email or web address] Initial Review Date: 03/07/2020 Generated: 03/10/20 4:34 pm Comments DCP- Discharge Planning Updated by [id number]: Tia oRllins on 03/10/20 2:[address] CM notified that patient is medically stable for discharge. Patient is needing Inpatient Psych placement. Patient has been refusing placement but earlier today patient had agreed to [facility]. Patient is aware that if she refuses treatment then she will be placed on 72hr hold and that weekends are not included in those hours. CM sent referral packets to [facility], [facility] and [facility]. CM will await to see if anyone accepts patient if not will broaden search. CM will continue to follow and assist as needed with discharge planning / needs. DCP- Discharge Planning Updated by [email or web address]: Cynthia Blackmon on 03/08/20 2:[address] CM RECEIVED A TELEPHONE CALL FROM THE PRIMARY NURSE, . THE PSYCHIATRIST STATES THE PATIENT WILL NEED INPATIENT PLACEMENT AND TO BEGIN THE SEARCH. THE PATIENT DOES REMAIN INTUBATED AND ON THE VENT. THE PLAN IS TO START WEANING TODAY. CM WILL FOLLOW TO SEARCH FOR PLACEMENT WHEN THE PATIENT IS EXTUBATED AND MEDICALLY STABLE. DCP- Discharge Planning Updated by [email or web address]: Cynthia Blackmon on 03/07/20 4:[address] NO INFORMATION WAS AVAILABLE ON THE FACE. TC TO [employer]. PATIENT WAS "PICKED UP AT #5 [facility] IN [place]. THE PHONE CALL FOR SERVICES CAME FROM [phone]. NO DOCUMENTATION REGARDING THE 'S NAME IN THE NOTES IN H/P. SPOKE WITH CM DIRECTOR, RAMBO AKHTAR. CALLED TO SPEAK WITH THE . CALL WAS RECEIVED BY KASANDRA MCINTOSH. HE STATES HE WAS THE PATIENT'S . THEY WERE 10/14/2019. SHE HAS TWO DAUGHTERS GARETH, AGE 23 YRS OLD AND LORENA AGE 3131 YEARS OLD. PCP- DR Shannon GILBERT IN [place]. PHARMACY- [facility]. THE STATED HE FOLLOWED THE AMBULANCE TO [facility]. HE KNEW SHE WAS PLACED ON A "BREATHING MACHINE" IN THE ER AND WENT TO ICU. THE PATIENT WAS INDEPENDENT IN HER ADL. 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 HE STATED SHE DOES HAVE INSURANCE WITH BC/BS. CM WILL FOLLOW TO ASSIST WITH DISCHARGE PLANNING. CM CONTACTED RADHA WITH [facility] [employer]. HE WAS COGNIZANT OF HER INSURANCE STATUS. DCPIA - Discharge Planning Initial Assessment Updated by [id number]: Cynthia Blackmon on 03/07/20 5:11 pm * Is the patient Alert and Oriented? No * PCP DR Shannon RAMIREZ [place], [place] * Pharmacy [facility] * Preadmission Environment Home with Family * ADLs Independent * Equipment None * Other Equipment N/A * List name and contact numbers for known caregivers / representatives who currently or will assist patient after discharge: KASANDRA MCINTOSH- - 10/14/2019 CELL PHONE [phone] * Verbal permission to speak to the caregivers and representatives has been obtained from the patient. No * Community resources currently utilized None * Please name any agencies selected above. N/A * Additional services required to return to the preadmission environment? Yes * Can the patient safely return to the preadmission environment? No * Has this patient been hospitalized within the prior 30 days at any hospital? No Last DP export: 03/10/20 2:28 pm Patient Name: FORTINO STEPHENS Page 09032 at 153 All edits/amendments must be made on the electronic document DICTATION DATE: 03/10/201533 MARKETING CONTENT SPECIALIST: OLENA 03/10/201533 RPT#: [id number] DC DATE: STATUS: ADM IN [facility] [address] [place] [address] END OF REPORT
--- NOTE | 2020-03-10 16:05 | NUR ---
FAMILY IN ROOM. PATIENT IS WITHOUT NEEDS. DOOR OPEN TO MONITOR
--- NOTE | 2020-03-10 17:01 | NUR ---
STILL LYING IN BED WITH . PATIENT IS WITHOUT DISTRESS.DOOR OPEN
--- NOTE | 2020-03-10 17:13 | MORECARE ---
CASE MANAGEMENT DISCHARGE SUMMARY PATIENT: FORTINO STEPHENS UNIT: [id number] ADM DATE: 03/06/20 AGE: 54 : 69 SEX: F ROOM/BED: D.2229 AUTHOR: MAMI,DOC PHYSICIAN: REFERRING PHYSICIAN: VILLA ALBERT MD DATE OF SERVICE: 03/10/20 Discharge Plan Patient Name: FORTINO STEPHENS Facility: [facility]:[place] : 1965 Planned Disposition: Anticipated Discharge Date: Discharge Date: Expected LOS: Initial Reviewer: [email or web address] Initial Review Date: 03/07/2020 Generated: 03/10/20 6:12 pm Comments DCP- Discharge Planning Updated by [id number]: Tia Rollins on 03/10/20 4:[address] CM received a call back from [facility] and they stated that their physician requested to re-eval on Thursday since patient is still on IV medications. CM received a call back from [facility] that pending CoVID screen they will most likely accept patient. CM contacted lab to get ETA on pending covid results. He states that they should get results between 8-11 tonight. CM asked nursing to call & fax results to [facility] fax [phone] phone [phone]. CM will continue to follow and assist as needed with discharge planning/ needs. DCP- Discharge Planning Updated by [email or web address]: Tia Rollins on 03/10/20 2:[address] CM notified that patient is medically stable for discharge. Patient is needing Inpatient Psych placement. Patient has been refusing placement but earlier today patient had agreed to [facility]. Patient is aware that if she refuses treatment then she will be placed on 72hr hold and that weekends are not included in those hours. CM sent referral packets to [facility], [facility] and [facility]. CM will await to see if anyone accepts patient if not will broaden search. CM will continue to follow and assist as needed with discharge planning / needs. DCP- Discharge Planning Updated by [id number]: Cynthia Blackmon on 03/08/20 2:[address] CM RECEIVED A TELEPHONE CALL FROM THE PRIMARY NURSE, SMITH. . THE PSYCHIATRIST STATES THE PATIENT WILL NEED INPATIENT PLACEMENT AND TO BEGIN THE SEARCH. THE PATIENT DOES REMAIN INTUBATED AND ON THE VENT. THE PLAN IS TO START WEANING TODAY. CM WILL FOLLOW TO SEARCH FOR PLACEMENT WHEN THE PATIENT IS EXTUBATED AND MEDICALLY STABLE. DCP- Discharge Planning Updated by [id number]: Cynthia Blackmon on 03/07/20 4:[address] NO INFORMATION WAS AVAILABLE ON THE FACE. TC TO [employer]. PATIENT WAS "PICKED UP AT #5 [facility] IN [place]. THE PHONE CALL FOR SERVICES CAME FROM [phone]. NO DOCUMENTATION REGARDING THE 'S NAME IN THE NOTES IN H/P. SPOKE WITH CM DIRECTOR, RAMBO AKHTAR. CALLED TO SPEAK WITH THE . CALL WAS RECEIVED BY KASANDRA MCINTOSH. HE STATES HE WAS THE PATIENT'S . THEY WERE 10/14/2019. SHE HAS TWO DAUGHTERS GARETH, AGE 23 YRS OLD AND LORENA AGE 3131 YEARS OLD. PCP- DR Shannon GILBERT IN [place]. PHARMACY- [facility]. THE STATED HE FOLLOWED THE AMBULANCE TO [facility]. HE KNEW SHE WAS PLACED ON A "BREATHING MACHINE" IN THE ER AND WENT TO ICU. THE PATIENT WAS INDEPENDENT IN HER ADL. 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 HE STATED SHE DOES HAVE INSURANCE WITH BC/BS. CM WILL FOLLOW TO ASSIST WITH DISCHARGE PLANNING. CM CONTACTED RADHA WITH [employer]. HE WAS COGNIZANT OF HER INSURANCE STATUS. DCPIA - Discharge Planning Initial Assessment Updated by [id number]: Cynthia Blackmon on 03/07/20 5:11 pm * Is the patient Alert and Oriented? No * PCP DR Shannon RAMIREZ [place], [place] * Pharmacy [facility] * Preadmission Environment Home with Family * ADLs Independent * Equipment None * Other Equipment N/A * List name and contact numbers for known caregivers / representatives who currently or will assist patient after discharge: KASANDRA MCINTOSH- - 10/14/2019 CELL PHONE [phone] * Verbal permission to speak to the caregivers and representatives has been obtained from the patient. No * Community resources currently utilized None * Please name any agencies selected above. N/A * Additional services required to return to the preadmission environment? Yes * Can the patient safely return to the preadmission environment? No * Has this patient been hospitalized within the prior 30 days at any hospital? No Last DP export: 03/10/20 2:34 pm Patient Name: FORTINO STEPHENS Page 69579 at 1713 All edits/amendments must be made on the electronic document DICTATION DATE: 03/10/201711 ASSISTANT PROFESSOR OF GEOGRAPHY: OLENA 03/10/201711 RPT#: [id number] DC DATE: STATUS: ADM IN [facility] [address] [place] [address] END OF REPORT
[2020-03-10 18:04] VITALS: BP 178/88
--- NOTE | 2020-03-10 18:12 | NUR ---
MEDS ORDERED FOR ANXIETY. PATIENT STATES SHE IS ANXIOUS AND DOESNT THINK SHE WILL BE ABLE TO SLEEP TONIGHT. IS AT BEDSIDE.
[2020-03-10 20:58] VITALS: BP 144/93
--- NOTE | 2020-03-10 23:28 | NUR ---
iNFORMED IN REPORT AWATTING CALL FROM [facility] FOR TRANSFER WERE WATTING ON NEGATIVE COVID RESULETS. NEGATIVE RESULETS FAXED TO [facility]. RESEVED CALL FROM ALL AT [facility] OVER PT RECORD. HE STATED HE WOULD CALL THE FOOD TASTER FOR DR LOPEZ FOR ORDER AND RETRUN WHEN HE HAD IT, RETRUNED CALL STATED HE HAD ORDER AND WAS READY FOR US TO SETUP AND SEND HER CALL REPORT. CALL TO FOOD TASTER SUZETTE WELCH SHOPPER INSIGHTS MANAGER FOR DR HALE, TO: TO TRANSFER TO [facility] FOR [place]. REPORT CALLED SALBADOR GALE RN AT [facility]. [facility] CALLED FOR TRANSPORT. PATIENT INFORMED AND AGRED WITH PLAIN. SHE IS ALERT AND ORENTED X4. UP AT RO. WITH NO S/S OF DISTRESS MATILDE AAT BEDSIDE AND AGREAD WITH PLAIN. CELL PHONE AND CHARAGE CAABLE SENT HOME WITH MATILDE BY PATIENT. P[facility]ER WORK [facility] HERE FOR TRANSPORT OUT AT 2314. PATIENT.
--- NOTE | 2020-03-11 09:36 | MORECARE ---
CASE MANAGEMENT DISCHARGE SUMMARY PATIENT: FORTINO STEPHENS UNIT: [id number] ADM DATE: 03/06/20 AGE: 54 : 69 SEX: F ROOM/BED: D.2229 AUTHOR: MAMI,DOC PHYSICIAN: REFERRING PHYSICIAN: VILLA ALBERT MD DATE OF SERVICE: 03/11/20 Discharge Plan Patient Name: FORTINO STEPHENS Facility: [facility]:[place] : 1965 Planned Disposition: Anticipated Discharge Date: Discharge Date: 03/10/2020 Expected LOS: Initial Reviewer: [email or web address] Initial Review Date: 03/07/2020 Generated: 03/11/20 10:35 am Comments DCP- Discharge Planning Updated by [email or web address]: Tia Rollins on 03/10/20 4:[address] CM received a call back from [facility] and they stated that their physician requested to re-eval on Thursday since patient is still on IV medications. CM received a call back from [facility] that pending CoVID screen they will most likely accept patient. CM contacted lab to get ETA on pending covid results. He states that they should get results between 8-11 tonight. CM asked nursing to call & fax results to [facility] fax [phone] phone [phone]. CM will continue to follow and assist as needed with discharge planning/ needs. DCP- Discharge Planning Updated by [id number]: Tia Rollins on 03/10/20 2:[address] CM notified that patient is medically stable for discharge. Patient is needing Inpatient Psych placement. Patient has been refusing placement but earlier today patient had agreed to [facility]. Patient is aware that if she refuses treatment then she will be placed on 72hr hold and that weekends are not included in those hours. CM sent referral packets to [facility], [facility], and [facility]. CM will await to see if anyone accepts patient if not will broaden search. CM will continue to follow and assist as needed with discharge planning / needs. DCP- Discharge Planning Updated by [id number]: Cynthia Blackmon on 03/08/20 2:[address] CM RECEIVED A TELEPHONE CALL FROM THE PRIMARY NURSE, SMITH. . THE PSYCHIATRIST STATES THE PATIENT WILL NEED INPATIENT PLACEMENT AND TO BEGIN THE SEARCH. THE PATIENT DOES REMAIN INTUBATED AND ON THE VENT. THE PLAN IS TO START WEANING TODAY. CM WILL FOLLOW TO SEARCH FOR PLACEMENT WHEN THE PATIENT IS EXTUBATED AND MEDICALLY STABLE. DCP- Discharge Planning Updated by [id number]: Cynthia Blackmon on 03/07/20 4:[address] NO INFORMATION WAS AVAILABLE ON THE FACE. TC TO [facility] PATIENT WAS "PICKED UP AT [address] IN [place]. THE PHONE CALL FOR SERVICES CAME FROM [phone]. NO DOCUMENTATION REGARDING THE 'S NAME IN THE NOTES IN H/P. SPOKE WITH CM DIRECTOR, RAMBO AKHTAR. CALLED TO SPEAK WITH THE . CALL WAS RECEIVED BY KASANDRA MCINTOSH. HE STATES HE WAS THE PATIENT'S . THEY WERE 10/14/2019. SHE HAS TWO DAUGHTERS GARETH, AGE 23 YRS OLD AND LORENA AGE 3131 YEARS OLD. PCP- DR Shannon GILBERT IN [place]. PHARMACY- [facility]. THE STATED HE FOLLOWED THE AMBULANCE TO [facility]. HE KNEW SHE WAS PLACED ON A "BREATHING MACHINE" IN THE ER AND WENT TO ICU. THE PATIENT WAS INDEPENDENT IN HER ADL. 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 HE STATED SHE DOES HAVE INSURANCE WITH BC/BS. CM WILL FOLLOW TO ASSIST WITH DISCHARGE PLANNING. CM CONTACTED RADHA WITH [employer]. HE WAS COGNIZANT OF HER INSURANCE STATUS. DCPIA - Discharge Planning Initial Assessment Updated by [id number]: Cynthia Lorri on 03/07/20 5:11 pm * Is the patient Alert and Oriented? No * PCP DR Shannon RAMIREZ [place], [place] * Pharmacy [facility] * Preadmission Environment Home with Family * ADLs Independent * Equipment None * Other Equipment N/A * List name and contact numbers for known caregivers / representatives who currently or will assist patient after discharge: KASANDRA MCINTOSH- - 10/14/2019 CELL PHONE [phone] * Verbal permission to speak to the caregivers and representatives has been obtained from the patient. No * Community resources currently utilized None * Please name any agencies selected above. N/A * Additional services required to return to the preadmission environment? Yes * Can the patient safely return to the preadmission environment? No * Has this patient been hospitalized within the prior 30 days at any hospital? No Last DP export: 03/10/20 4:12 pm Patient Name: FORTINO STEPHENS Page [id number] at 0936 All edits/amendments must be made on the electronic document DICTATION DATE: 03/11/20935 COMPOSITION SIDING WORKER: OLENA 03/11/20935 RPT#: [id number] DC DATE:03/10/20 STATUS: DIS IN [facility] [address] [place] [address] END OF REPORT
== END 2020-03-10 23:14 | disposition short-term general hospital (02) | DRG 917 ==
LOC: D.ER 21:28 → D.ICU 22:21 → D.MS 03-09 13:00
PROVIDERS: Family Medicine; ADMIT Family Medicine; ATTEND Family Medicine
PROC: 5A1945Z Respiratory Ventilation, 24-96 Consecutive Hours (ICD-10-PCS; principal; 2020-03-06)
PROC: 0BH17EZ Insertion of Endotracheal Airway into Trachea, Via Natural or Artificial Opening (ICD-10-PCS; 2020-03-06)
DX: T43.592A Poisoning by other antipsychotics and neuroleptics, intentional self-harm, initial encounter (principal); J96.00 Acute respiratory failure, unspecified whether with hypoxia or hypercapnia; F17.203 Nicotine dependence unspecified, with withdrawal; E87.6 Hypokalemia; R00.0 Tachycardia, unspecified; F10.129 Alcohol abuse with intoxication, unspecified; Y90.6 Blood alcohol level of 120-199 mg/100 ml